=== PATIENT | male | born 1990 | race African-American/Black ===

== ENCOUNTER → 2016-09-11 | Outpatient (CLI) | payer OTHER ==
--- NOTE | 2016-09-15 09:45 | SLEEPCENT ---
DATE OF PROCEDURE: 09/11/2016 ORDERED BY: Sandee Cool Nocturnal polysomnography was performed for evaluation of sleep apnea syndrome symptoms in this patient with a history of excessive somnolence. 8 hours and 25 minutes of data were reviewed. There were 359 minutes of sleep identified. Sleep latency was prolonged at 92 minutes. Rapid eye movement (REM ) latency was normal at 82 minutes. Sleep architecture was fairly well preserved with some fragmentation late in the study. There were 5 REM periods appreciated. Overall sleep efficiency was 72%. The patient's electrocardiogram (EKG) showed a sinus rhythm with an average heart rate of 65 beats per minute. Rate variability was seen. Rate ranged 55 to 90. Electroencephalogram (EEG) showed normal waveforms for awake and sleep. There were 76 respiratory events identified of 10 seconds in duration or greater for an apnea-hypopnea index of 12.7. The events were more frequently central than obstructive, associated with the lateral position as much as supine and not necessarily stage related. Arousals from respiratory events occurred 8.5 times per hour. There was also some limb activity appreciated. No trains of events, but limb movement arousal index was borderline at 5.2. 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 RECOMMENDATION: The patient should be encouraged to return to the sleep disorder center for pressure therapy. Given the complex nature of his condition, a bilevel device and a back up rate may be needed. edited: 09/15/2016 1205 tkf MTDD
== END ==
LOC: M SLEEP 19:57
PROVIDERS: ATTEND Nurse Practitioner Adult Health
DX: G47.31 Primary central sleep apnea (principal); G47.33 Obstructive sleep apnea (adult) (pediatric)

== ENCOUNTER → 2016-11-09 | Outpatient (CLI) | payer OTHER ==
--- NOTE | 2016-11-15 07:44 | SLEEPCENT ---
DATE OF PROCEDURE: 11/09/2016 ORDERED BY: Sandee Cool Nocturnal polysomnography was performed for the titration of pressure therapy in this patient with obstructive sleep apnea syndrome and apnea-hypopnea index of 12.7. For testing, the patient was fit with a [employer]Med Quattro full face mask of small size and 4 cm of water pressure were applied to the circuit and the lights were extinguished. 8 hours and 3 minutes of data were reviewed. There were 415 minutes of sleep identified. Sleep latency was prolonged at 32 minutes. Rapid eye movement (REM) latency was mildly prolonged at 125 minutes. Sleep architecture was fairly good. There were 3 REM periods appreciated of progressive duration. Overall sleep efficiency was 87.1%. The patient's electrocardiogram (EKG) showed a sinus rhythm with an average heart rate of 57 beats per minute. Electroencephalogram (EEG) showed normal waveforms for awake and sleep. Persistence of respiratory events prompted an increase in CPAP pressure from 4 to the optimal pressure of 7, with which the patient slept through REM without respiratory event or significant oxygen desaturation. Remaining measures of sleep physiology were within reasonable limits. Some limb activity was noted, but limb movement arousals were only 5.8 per hour. IMPRESSION: Obstructive sleep apnea syndrome (G47.33). RECOMMENDATION: Nightly use of pressure therapy at 7 cm of water.
== END ==
LOC: M SLEEP 18:31
PROVIDERS: ATTEND Nurse Practitioner Adult Health
DX: G47.33 Obstructive sleep apnea (adult) (pediatric) (principal)